=== PATIENT | male | born 1990 | race Two or more races ===

== ENCOUNTER 2021-01-23 13:45 | Emergency (ER) | payer OTHER ==
[~2021-01-23] VITALS: Ht 177.8 cm; Wt 127.6 kg
[2021-01-23 14:28] LABS: BASOPHILS % (AUTO) 0 % (0-1); EOSINOPHILS % (AUTO) 0 % (1-7); LYMPHOCYTES % (AUTO) 12 % (22-44); MEAN CORPUSCULAR HEMOGLOBIN 29.1 pg (27.5-34.5); MEAN CORPUSCULAR HGB CONC 34.3 g/dL (33.2-36.2); MEAN PLATELET VOLUME 8.2 fL (7.4-10.4); MONOCYTES % (AUTO) 8 % (2-9); NEUTROPHILS % (AUTO) 80 % (42-75); PLATELET COUNT 392 x10^3/uL (130-400); RED BLOOD COUNT 5.55 x10^6/uL (4.38-5.82); RED CELL DISTRIBUTION WIDTH 13.5 % (9.4-14.8)
[2021-01-23 14:33] LABS: ALANINE AMINOTRANSFERASE 20 U/L (12-78); ALBUMIN 3.5 g/dL (3.4-5.0); ANION GAP 10 mmol/L (5-15); CALCIUM 8.7 mg/dL (8.5-10.1); CHLORIDE 107 mmol/L (98-107); CREATININE 1.04 mg/dL (0.7-1.3)
[2021-01-23 14:35] LABS: ALKALINE PHOSPHATASE 60 U/L (45-117); BILIRUBIN,TOTAL 1.8 mg/dL (0.2-1.0); TOTAL PROTEIN 7.8 g/dL (6.4-8.2)
--- NOTE | 2021-01-23 17:38 | NUR ---
PELT SALTER: PT TO ROOM FROM LOBBY
--- NOTE | 2021-01-23 17:50 | NUR ---
task RN: assumed care of pt on behalf of primary RN for assessment. pt here for diffuse abd pain and diarrhea x2 days. pt reports that he was eating a lot of [place] food at a [employer] and was concerned that he may have food poisoning. no vomiting. pt is continent. reports that there is mucous in his stool and that it is tinged with BRB. no urinary c/o. pt mildly pale. warm and dry Dr. De Santiago has been to bedside for eval pt to have CT scan. report to Tino PATHAK
--- NOTE | 2021-01-23 18:18 | NUR ---
Report from [place]. Pt in CT.
[2021-01-23] MEDS ORDERED: OMNIPAQUE 350 MG/ML, 100ML BOTTLE ONE (18:21)
--- NOTE | 2021-01-23 18:53 | NUR ---
RECEIEVED REPORT FROM CRISTY PATHAK. TRANSFER OF CARE
[2021-01-23] MEDS ORDERED: CIPROFLOXACIN/PMX 400MG/200ML 200 ML IV ONE (19:00)
[2021-01-23] MEDS ORDERED: METRONIDAZOLE PMX 500MG/100ML 100 ML IV ONE (19:00)
[2021-01-23] MEDS ORDERED: SODIUM CHLORIDE 0.9% 1,000ML IVBOLUS ONE (19:00)
[2021-01-23] MEDS ORDERED: CIPROFLOXACIN/PMX 400MG/200ML 200 ML ONE (19:30)
[2021-01-23] MEDS ORDERED: METRONIDAZOLE PMX 500MG/100ML 100 ML ONE (19:30)
--- NOTE | 2021-01-23 20:19 | NUR ---
PT AMBULATED TO BATHROOM WITH STEADY GAIT.
--- NOTE | 2021-01-23 20:43 | NUR ---
pt ambulated back to room with steady gait. pt had watery diarrhea and urinated. pt back in bed resting comfortably with parenst at bedside. atbfluids running. nadn. vss. bed in low position, rails engaged, call light within reach. attached to monitors.
--- NOTE | 2021-01-23 21:02 | NUR ---
Patient is resting comfortably in bed. Bed in lowest, rails engaged, call light on lap. Vital Signs within normal limits. WCTM.
[2021-01-23] MEDS ORDERED: IBUPROFEN 800 MG TABLET ONE (22:09)
[2021-01-23] MEDS ORDERED: IBUPROFEN 800 MG TABLET PO ONE (22:30)
[2021-01-23 23:14] VITALS: BP 124/75
--- NOTE | 2021-01-23 23:14 | NUR ---
re-evaluation done. patient discharged with prescriptions and instruction. verbalized understanding.
== END 2021-01-23 23:18 | disposition home or self-care (01) ==
LOC: ED 17:54
DX: K57.33 Diverticulitis of large intestine without perforation or abscess with bleeding (principal)
CPT/HCPCS: 36415; 74177; 80053; 85025; 96365; 96367; 99285; J0744; J7030; Q9967